=== PATIENT | male | born 1945 | race African-American/Black ===

== ENCOUNTER 2016-04-05 11:09 | Inpatient (IN) ==
[2016-04-05] MEDS ORDERED: SODIUM CHLORIDE 0.9% 1,000 ML IV STA (11:26)
[2016-04-05] MEDS ORDERED: ONDANSETRON 4 MG/2 ML VIAL IV PRN ×2 (11:26→12:27)
[2016-04-05] MEDS ORDERED: PANTOPRAZOLE 40 MG VIAL IV STA (11:26)
--- NOTE | 2016-04-05 11:37 | Emergency Department Note ---
Jose Angel Yang Gwan, am scribing for, and in the presence of, Nabil Sauceda MD 11:33 . Komal Yang James D, MD, personally performed the services described in this documentation, ascribed by Marilee Walter in my presence, and it is both accurate and complete [id number] . Arrival - Arrival Chief Complaint: GI Bleed/Rectal Stated Complaint: GI bleed ED Nursing Triage Note: Brought in by EMS c/o blood in stool and blood in urine- onset one week ago. Patient was sent from Dr. Garcia's office for further evaluation. Mode of Arrival: Stretcher Limitations: No Limitations Source: Patient, Old Records Reviewed, RN Notes Reviewed - History of Present Illness HPI Narrative: Pt is a 70 y/o male, with a hx of Prostate CA and HTN, who presents to the ED for further evaluation of dark color BM and blood in urine with an onset of one week. Patient was sent to ED from Dr. Ortega's office for further evaluation. He denies any abd pain. No other problems/complaints reported in ED. Onset (ago): week(s) Consistency: constant Severity: severe Allergies/Adverse Reactions: Allergies Allergy/AdvReac Type Severity Reaction Status Date / Time No Known Allergies Allergy Verified 04/05/16 11:24 Home Medications: Home Medications Medication Instructions Recorded Confirmed Type Amlodipine Besylate [Amlodipine 10 mg PO DAILY 04/05/16 04/05/16 History Besylate] Aspirin EC Tab 81 mg PO DAILY 04/05/16 04/05/16 History Gabapentin Cap/Tab [Neurontin 300 mg PO BID 04/05/16 04/05/16 History Cap/Tab] Hydrocodone/Acetaminophen 1 each PO BID 04/05/16 04/05/16 History [Hydrocodon-Acetaminoph 7.5-325] Omeprazole [Omeprazole] 40 mg PO DAILY 04/05/16 04/05/16 History Review of System - Review of System 12 point system: reviewed and no additional remarkable complaints except as stated - Review of System Gastrointestinal: Present: as per HPI, other (blood in BM and in urine) Medical,Surgical,& Family Hx - Medical History Cardio: History of: Hypertension Respiratory: History of: COPD Gastrointestinal: History of: GERD - Social History Smoking Status: Current every day smoker Frequency of Alcohol Use: None Type of Drug Use: None Exam Vital Signs: Vital Signs Temperature 98.3 F 04/05/16 11:09 Pulse Rate 67 04/05/16 12:03 Respiratory Rate 16 04/05/16 12:03 Blood Pressure 119/88 04/05/16 12:03 O2 Sat by Pulse Oximetry 98 04/05/16 12:03 GENERAL: This is a thin, pale appearing black male in no apparent distress. VITAL SIGNS: Reviewed HEENT: Head is atraumatic and normocephalic. Pupils are equal round react to light. Extraocular movements are intact. Conjunctiva are pale oropharynx is benign with moist mucous membranes. NECK: Neck is soft and supple without tenderness. There are no masses. There is no lymphadenopathy. LUNGS: Lungs are clear to auscultation. Chest rises symmetrically. There is no chest wall tenderness. CV: Heart is regular rate and rhythm without murmurs rubs or gallops. ABDOMEN: Abdomen is soft, nontender to palpation. There are no abdominal abnormal masses palpated. There is no organomegaly. Bowel sounds are present and active. Rectal: Black stool present in the vault, weakly heme positive. SKIN: Skin is warm and dry. No rash. EXTREMITIES: Patient has full range of motion without tenderness. There is no pedal edema. NEUROLOGIC: Awake alert and oriented 4. Cranial nerves II through XII are grossly intact. Motor is 5 over 5 in all extremities bilaterally. Deep tendon reflexes are 2+ and bilaterally equal. Course - Consultations Consultation #1: Discussed with hospitalist. Patient will be admitted to their service. Time: 12:01 Results - Diagnostic Findings Procedure: Abdominal x-ray: image reviewed by me (Nonspecific gas pattern, no free air, gas in the rectum.), Chest x-ray: image reviewed by me ( Hyperinflation bilaterally without evidence of infiltrates or pleural effusions. ) Disposition Clinical Impression: Anemia, Upper GI bleed, History of prostate cancer Case discussed with: patient Disposition: Still a Patient Condition: Stable
[2016-04-05] MEDS ORDERED: ONDANSETRON 4 MG/2 ML VIAL ONE (11:54)
--- NOTE | 2016-04-05 11:56 | XRay Report ---
Portable chest Date:[04/05/2016] Clinical history: Shortness of breath Comparison: 04/04/2011 Technique: Portable AP sitting chest Findings: The heart is small and compressed by the overexpanded lungs. Chronic scarring with calcified granulomata. Stable mediastinum with degenerative changes. Impression: Bullous emphysema with chronic scarring. Evidence of old healed granulomatous disease. PROCEDURE INTERPRETED AT [facility] DEPARTMENT OF RADIOLOGY Final Report Signed by: Dr. Barbara Alvarez
--- NOTE | 2016-04-05 12:00 | XRay Report ---
Exam: XR abdomen complete w decub Date: 04/05/2016 11:27 AM Comparison: None Indication: Generalized abdominal pain Technique: Supine and left lateral decubitus abdomen Findings: Nonobstructed bowel gas pattern. Increased fecal material in colon. No free air is identified. Diffuse arterial calcifications with degenerative changes. Impression: Nonspecific bowel gas pattern. Increased fecal material consistent with constipation. No free air. Diffuse arterial calcifications are noted. PROCEDURE INTERPRETED AT [facility] DEPARTMENT OF RADIOLOGY Final Report Signed by: Dr. Barbara Alvarez
[2016-04-05] MEDS ORDERED: PANTOPRAZOLE 40 MG VIAL IV ONE (12:14)
[2016-04-05 12:24] LABS: Basophils % 0.7 % (0.0-0.8); Eosinophils % 0.4 % (0.00-10.9); Hemoglobin 6.5 GM/DL (14.0-18.0); Immature Granulocytes % 0.7 %; Immature Granulocytes Absolute 0.03 #; Lymphocytes # 0.8 10*3/uL (1.4-4.0); Lymphocytes % 18.6 % (21.2-54.2); Mean Corpuscular HGB Conc 28.3 GM/DL (32-36); Mean Corpuscular Hemoglobin 22 PG (27-34); Mean Corpuscular Volume 75.9 FL (87-102); Mean Platelet Volume 9.2 FL (9.6-12.0); Monocytes # 0.4 10*3/uL (0.11-0.8); Monocytes % 7.8 % (1.7-12.7); Neutrophils # 3.2 10*3/uL (1.4-7.4); Neutrophils % 71.8 % (38.7-73.9); Platelet Count 491 10*3/uL (130-400); Red Blood Count 3.03 10*6/uL (3.8-5.5); Red Cell Distribution Width 18.1 % (9.3-17.3); White Blood Count 4.5 10*3/uL (4.5-13.71)
[2016-04-05] MEDS ORDERED: ZALEPLON 5 MG CAPSULE PO PRN (12:24)
[2016-04-05] MEDS ORDERED: PANTOPRAZOLE 40 MG TABLET PO SCH (12:30)
[2016-04-05 12:33] LABS: INR 1.1; Partial Thromboplastin Time 24.1 SECS (0-40)
[2016-04-05 12:52] LABS: Hypochromasia 1+; Microcytosis 1+; Target Cells Few
[2016-04-05 12:53] LABS: Ovalocytes Slight; Platelet Estimate Increased
[2016-04-05 13:02] LABS: Alanine Aminotransferase 11 U/L (16-61); Albumin 3.7 G/DL (3.4-5.0); Alkaline Phosphatase 59 U/L (45-117); Aspartate Amino Transferase 9 U/L (0-37); Bilirubin,Total < 0.39 MG/DL (0.2-1.0); Blood Urea Nitrogen 11 MG/DL (7-18); Calcium 8.9 MG/DL (8.5-10.1); Glucose 78 MG/DL (74-106); Osmolality,Calculated 285.7 MOS/KG (273-304); Potassium 4.8 MMOL/L (3.5-5.1); Sodium 145 MMOL/L (136-145); Total Protein 6.9 G/DL (6.4-8.3)
--- NOTE | 2016-04-05 13:16 | Hospitalist History & Physical ---
<Nila Alcocer - Last Filed: 04/05/16 13:11> Assessment and Plan - Time spent with patient Time spent with patient: Greater than 30 minutes (due to assessment, plan and documentation) (1) Upper GI bleed Status: Acute Assessment and plan: VTE prophylaxis NPO BMP, CBC, Mag in AM zofran PRN Protonix 40 mg IV BID Consult Dr. Peterson- GI. Current Visit: Yes (2) Acute blood loss anemia Status: Acute Current Visit: Yes (3) History of prostate cancer Status: Acute Current Visit: Yes History of Present Illness Chief complaint: sent from [facility] History of present illness: Mr. Caldwell is a 70 year old male who was seen today at Dr. Garcia's office in [place], [place] for black stools. He was sent to our facility for further evaluation. He states that he has been having black stools for about 1 week. Denies any BRBPR. He is on a baby aspirin every day because "it's just good for you". He denies excessive NSAID use, or history of ulcers in the past. He does have a hx of prostate cancer for which he is followed by Dr. Quintero. His H/H from [facility] was 6/. On repeat at [facility], H/H was 6/. He does state that he has been vomiting as well, but denies any blood in his emesis. Denies diarrhea. No known problems with his heart, kidneys or lungs. He is not diabetic, but is hypertensive and is on 1 BP pill a day, the name which he can not recall. He states his last Colonoscopy was about 10 years ago and was reportedly normal. He cannot remember who performed his scope. BP is stable at 119/88 last check. Pulse 74. He lives at home with his Son, Karina Carias, and his . He is accompanied today by his daughter, Suzanne Hahn. He functions independently typically. Further plan and addendum to follow by Dr. Madalyn Frank. Home Medications Medication Instructions Recorded Confirmed Type Amlodipine Besylate [Amlodipine 10 mg PO DAILY 04/05/16 04/05/16 History Besylate] Aspirin EC Tab 81 mg PO DAILY 04/05/16 04/05/16 History Gabapentin Cap/Tab [Neurontin 300 mg PO BID 04/05/16 04/05/16 History Cap/Tab] Hydrocodone/Acetaminophen 1 each PO BID 04/05/16 04/05/16 History [Hydrocodon-Acetaminoph 7.5-325] Omeprazole [Omeprazole] 40 mg PO DAILY 04/05/16 04/05/16 History Allergies Allergy/AdvReac Type Severity Reaction Status Date / Time No Known Allergies Allergy Verified 04/05/16 11:24 Medical,Surgical,& Family Hx - Medical History Cardio: History of: Hypertension Respiratory: History of: COPD Gastrointestinal: History of: GERD - Social History Smoking Status: Current every day smoker Frequency of Alcohol Use: None Type of Drug Use: None Marital Status: Unknown Lives With:: Children (son, Karina Jr and ) Functional capacity: uses cane/walker (uses crutches.) - Constitutional Constitutional: Absent: chills, fatigue, fever(s) - EENT Eyes: Absent: blurry vision, diplopia Ears: Absent: decreased hearing, tinnitus Nose, mouth and throat: Absent: dysphagia, headache(s) - Cardiovascular Cardiovascular: Absent: chest pain at rest, dyspnea on exertion, lightheadedness - Respiratory Respiratory: Absent: cough, dyspnea, hemoptysis - Gastrointestinal Gastrointestinal: Present: melena, nausea, vomiting. Absent: abdominal pain, diarrhea - Genitourinary Genitourinary: Absent: difficulty urinating, dysuria, flank pain - Musculoskeletal Musculoskeletal: Absent: arthralgias, back pain - Neurological Neurological: Absent: confusion, dizziness - Psychiatric Psychiatric: Absent: anxiety, confusion, depression - Endocrine Endocrine: Absent: cold intolerance, heat intolerance - Hematologic/Lymphatic Hematologic/Lymphatic: Absent: easy bleeding, easy bruising Exam - Constitutional General appearance: no acute distress, over weight - Head Head exam: Present: normal inspection, normocephalic - Eye Eye exam: Present: EOMI. Absent: scleral icterus Pupils: Present: ESE, normal accommodation - ENT ENT exam: Present: normal exam, normal oropharynx - Neck Neck exam: Present: normal inspection. Absent: lymphadenopathy - Respiratory Respiratory exam: Present: clear to auscultation bilaterally. Absent: accessory muscle use - Cardiovascular Cardiovascular exam: Present: regular rate and rhythm. Absent: carotid bruit - GI/Abdominal GI/Abdominal exam: Present: normal bowel sounds, soft. Absent: distended, firm , tenderness - Extremities Exam Extremities exam: Present: normal inspection. Absent: edema - Back Exam Back exam: Present: normal inspection. Absent: muscle spasm - Neurological Exam Neurological exam: Present: alert, oriented X3 - Psychiatric Psychiatric exam: Present: normal affect, normal mood - Skin Skin exam: Present: normal color, warm, dry, intact Results - Labs CBC & BMP: 04/05/16 12:11 04/05/16 12:16 Lab Results: I have reviewed the past 24 hour labs - Diagnostic Findings Procedure: Abdominal x-ray: report reviewed by me (nonspecific bowel gas pattern. increased fecal material c/w constipation. no free air. diffuse arterial calcifications are noted. ), Chest x-ray: report reviewed by me ( bullous emphysema with chronic scarring. evidence of old healed granulomatous disease. ) Quality Measures - VTE Contraindication to Pharmacological VTE Prophylaxis: Active Bleeding <Madalyn Frank - Last Filed: 04/05/16 14:51> Assessment and Plan (1) Upper GI bleed Status: Acute Current Visit: Yes (2) Acute blood loss anemia Status: Acute Assessment and plan: Transfuse 2 units packed red blood cells. Current Visit: Yes History of Present Illness History of present illness: Mr. Caldwell is a 70 year old male that was admitted to the emergency department from his primary care physician's office with evidence of anemia and hemoglobin of 6.5. The patient has been having black tarry stools. He has evidence of an upper gastrointestinal bleed and is being admitted for acute blood loss anemia with a consultation for gastroenterology. The patient is pleasant and cooperative. I examined the patient in the emergency department in room 4 with his daughter at the bedside. All their questions were answered appropriately. The case was discussed with the gastroenterology nurse practitioner. The patient is being transfused 2 units packed red blood cells. His INR is normal. His renal function is stable. Further recommendations will depend on his response to blood transfusion and the findings of his endoscopy. The content of this history and physical has been reviewed and discussed with nurse practitioner. I agree with the documentation and plan below. Exam - Constitutional Vitals: Period Temp Pulse Resp BP Sys/Cueto Pulse Ox Last 24 Hr 76-79 18-20 138-138/57-57 99-100 Results - Labs CBC & BMP: 04/05/16 12:11 04/05/16 12:16
[2016-04-05] MEDS ORDERED: PROPOFOL 200 MG/20 ML VIAL IV ONE (13:33)
[2016-04-05] MEDS ORDERED: LIDOCAINE 2% 5 ML VIAL ONE (13:33)
--- NOTE | 2016-04-05 13:33 | Gastrointestinal Consult Note ---
Assessment and Plan (1) Upper GI bleed Status: Acute Assessment and plan: 04/05-Onset of dark tarry stools x 1 week ago, now with lower abd cramping, coffee ground emesis on yesterday and hgb 6.5 with prior hx of anemia in past. Schedule for tentative EGD tomorrow to further evaluate. Plan and addendum to follow by Dr Peterson. Current Visit: Yes History of Present Illness Chief complaint: Upper GI bleed History of present illness: Mr. Caldwell is a 70 year old male who presented to the hospital with onset of dark tarry stools and coffee ground emesis. Pt is a fairly good historian and able to contribute to his history. Daughter is present and at bedside as well. Pt states that he was in his usual state of health until a week ago when he began to notice his stools had changed and became dark and tarry. He states this continued daily until yesterday when he began not feeling very well and had onset of nausea with vomiting of dark black emesis, he states resembled coffee grounds. He states he vomited a couple of times however has not vomited again since last night. He states he also has had some lower abdominal discomfort the last couple of days however denies any upper abdominal, epigastric pain. He has a history of GERD and states this is controlled with his Prilosec. He denies any dysphagia or weight loss recently. Denies any NSAID use. States that he takes Tylenol arthritis for pain and an ASA daily. He denies any history of PUD in the past. Denies alcohol or tobacco use. He has a history of prostate cancer in the past and is followed by Dr Quintero for this with routine PSA checks. His last endoscopy was in [address] Bobo in which he had this done for anemia with no findings on EGD and only findings on c -scope at that time was a stricture around the sigmoid colon however noted it was a poor prep at that time. Hgb on admission noted to be 6.5. No active, overt bleeding at present. BUN/Cr ratio 12. Home Medications Medication Instructions Recorded Confirmed Type Amlodipine Besylate [Amlodipine 10 mg PO DAILY 04/05/16 04/05/16 History Besylate] Aspirin EC Tab 81 mg PO DAILY 04/05/16 04/05/16 History Gabapentin Cap/Tab [Neurontin 300 mg PO BID 04/05/16 04/05/16 History Cap/Tab] Hydrocodone/Acetaminophen 1 each PO BID 04/05/16 04/05/16 History [Hydrocodon-Acetaminoph 7.5-325] Omeprazole [Omeprazole] 40 mg PO DAILY 04/05/16 04/05/16 History Allergies Allergy/AdvReac Type Severity Reaction Status Date / Time No Known Allergies Allergy Verified 04/05/16 11:24 Medical,Surgical,& Family Hx - Medical History Cardio: History of: Hypertension Respiratory: History of: COPD Gastrointestinal: History of: GERD - Social History Smoking Status: Current every day smoker Frequency of Alcohol Use: None Type of Drug Use: None 12 point system: reviewed and no additional remarkable complaints except as stated - Constitutional Constitutional: Present: as per HPI - EENT Eyes: Present: as per HPI Ears: Present: as per HPI Nose, mouth and throat: Present: as per HPI - Cardiovascular Cardiovascular: Present: as per HPI - Respiratory Respiratory: Present: as per HPI - Gastrointestinal Gastrointestinal: Present: as per HPI, abdominal pain, coffee ground emesis, cramping, melena - Genitourinary Genitourinary: Present: as per HPI - Musculoskeletal Musculoskeletal: Present: as per HPI - Neurological Neurological: Present: as per HPI - Psychiatric Psychiatric: Present: as per HPI - Endocrine Endocrine: Present: as per HPI - Hematologic/Lymphatic Hematologic/Lymphatic: Present: as per HPI Exam - Constitutional General appearance: normal weight, no acute distress - Head Head exam: Present: normal inspection, normocephalic - Eye Eye exam: Present: other (lids and conjunctiva unremarakble). Absent: scleral icterus - ENT ENT exam: Present: normal exam, normal oropharynx - Neck Neck exam: Present: normal inspection - Respiratory Respiratory exam: Present: clear to auscultation bilaterally. Absent: rales, rhonchi, wheezes - Cardiovascular Cardiovascular exam: Present: regular rate and rhythm. Absent: diastolic murmur , JVD, systolic murmur - GI/Abdominal GI/Abdominal exam: Present: normal bowel sounds, soft. Absent: ascites, distended, mass, organomegaly, tenderness - Extremities Exam Extremities exam: Present: normal inspection, full ROM - Back Exam Back exam: Present: normal inspection - Neurological Exam Neurological exam: Present: alert, oriented X3 - Psychiatric Psychiatric exam: Present: normal affect, normal mood - Skin Skin exam: Present: normal color, warm, dry Results - Labs CBC & BMP: 04/05/16 12:11 04/05/16 12:16 Lab Results: I have reviewed the past 24 hour labs Quality Measures - VTE Contraindication to Pharmacological VTE Prophylaxis: Active Bleeding
[2016-04-05] MEDS ORDERED: SODIUM CHLORIDE 0.9% 250 ML IV PRN (13:36)
[2016-04-05] MEDS: GABAPENTIN 300 MG CAPSULE PO SCH (21:44)
[2016-04-05] MEDS: PANTOPRAZOLE 40 MG VIAL IV SCH (22:22)
[2016-04-06] MEDS: SODIUM CHLORIDE 0.9% 1,000 ML IV SCH ×4 (02:15→17:53)
[2016-04-06 06:41] LABS: Basophils # 0.1 10*3/uL (0.0-0.2); Basophils % 1.4 % (0.0-0.8); Eosinophils # 0.1 10*3/uL (0.0-0.87); Hematocrit 33.7 VOL% (42.0-52.0); Immature Granulocytes % 0.5 %; Immature Granulocytes Absolute 0.03 #; Mean Corpuscular HGB Conc 29.7 GM/DL (32-36); Mean Corpuscular Hemoglobin 24 PG (27-34); Mean Platelet Volume 9.3 FL (9.6-12.0); Monocytes # 0.5 10*3/uL (0.11-0.8); Monocytes % 7.5 % (1.7-12.7); Neutrophils # 4.8 10*3/uL (1.4-7.4); Neutrophils % 73.6 % (38.7-73.9); Platelet Count 550 10*3/uL (130-400); Red Blood Count 4.21 10*6/uL (3.8-5.5); Red Cell Distribution Width 17.4 % (9.3-17.3); White Blood Count 6.5 10*3/uL (4.5-13.71)
[2016-04-06 07:15] LABS: Calcium 9.3 MG/DL (8.5-10.1); Magnesium 2.1 MG/DL (1.8-2.4); Osmolality,Calculated 276.3 MOS/KG (273-304); Potassium 4.6 MMOL/L (3.5-5.1)
[2016-04-06] MEDS: PANTOPRAZOLE 40 MG VIAL IV SCH ×2 (09:48→21:10)
--- NOTE | 2016-04-06 11:10 | Hospitalist Progress Note ---
Assessment and Plan (1) Upper GI bleed Status: Acute Assessment and plan: EGD today Current Visit: Yes (2) Acute blood loss anemia Status: Acute Assessment and plan: Transfuse 2 units packed red blood cells. Current Visit: Yes Hospitalist: Subjective Interval history: Patient seen and examined. No acute events overnight. Hemoglobin has come up with transfusion of 2 units of packed red blood cells. He has been nothing by mouth since midnight. Plan for EGD today. Exam - Constitutional Vitals: Period Temp Pulse Resp BP Sys/Cueto Pulse Ox Last 24 Hr 97.7 F-98.9 F 60-80 18-20 110-139/49-91 92-100 General appearance: no acute distress - Head Head exam: Present: normal inspection, normocephalic - Eye Eye exam: Present: EOMI - Respiratory Respiratory exam: Present: clear to auscultation bilaterally - Cardiovascular Cardiovascular exam: Present: regular rate and rhythm - GI/Abdominal GI/Abdominal exam: Present: normal bowel sounds, soft - Extremities Exam Extremities exam: Absent: edema - Neurological Exam Neurological exam: Present: alert, oriented X3 - Psychiatric Psychiatric exam: Present: normal affect, normal mood - Skin Skin exam: Present: normal color, warm Results - Labs CBC & BMP: 04/06/16 06:21 04/06/16 06:21 Lab Results: I have reviewed the past 24 hour labs Quality Measures - VTE Contraindication to Pharmacological VTE Prophylaxis: Active Bleeding
--- NOTE | 2016-04-06 13:30 | History and Physical Update ---
History and Physical Update - Physical Exam Mental Status: alert and oriented Heart: regular rate and rhythm Lung: clear to auscultation Abdomen: within normal limits Vitals: within normal limits History and Physical Changes: 70-year-old male was admitted with upper GI bleeding.
--- NOTE | 2016-04-06 13:47 | Operative Note ---
Date of procedure: 04/06/16 Pre-op diagnosis: Upper GI bleeding Procedure: Procedure: Esophagogastroduodenoscopy with argon plasma coagulation of duodenal vascular malformations Brief clinical abstract: Patient is a 70-year-old male admitted with coffee- ground emesis and melena. He has required transfusion of 2 units packed red blood cells. He denies recent abdominal pain or weight loss. Indication for procedure: Upper GI bleeding Endoscopic findings:[After informed consent was obtained, the patient was placed in the left lateral decubitus position. The gastroscope was inserted in the upper esophagus under direct vision with no resistance encountered. Esophageal mucosa appeared normal with squamocolumnar junction sharply demarcated above a moderate-sized hiatal hernia. The endoscope was advanced in the stomach which was carefully examined including retroflexed view of the cardia and fundus. No blood was in the stomach. No mucosal abnormalities were noted. The pyloric channel was normal. In the duodenal bulb there were at least 4 prominent vascular malformations which were villegas red in color but not bleeding. Photos were taken of these. I coagulated them with argon plasma coagulation device on a setting of 20 W and appeared to have good results afterwards. Second and third portion of the duodenum were normal. The endoscope was withdrawn and patient appeared to tolerate the procedure well. 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 Anesthesia: MAC Surgeon / Physician: Sukh Peterson Estimated blood loss: minimal Specimens: none sent Condition: stable Disposition: post procedure unit Results - Labs CBC & BMP: 04/06/16 06:21 04/06/16 06:21 Discharge Plan - Discharge Medications No Action Gabapentin Cap/Tab [Neurontin Cap/Tab] 300 mg PO BID Omeprazole [Omeprazole] 40 mg PO DAILY Aspirin EC Tab 81 mg PO DAILY Hydrocodone/Acetaminophen [Hydrocodon-Acetaminoph 7.5-325] 1 each PO BID Amlodipine Besylate [Amlodipine Besylate] 10 mg PO DAILY - Follow Up or Referral - Forms/Instructions
--- NOTE | 2016-04-06 13:58 | Anesthesia ---
Anesthesia Post OP - Post Ansesthetic Evaluation Patient seen in post op: Yes Resp: within normal limits CV: within normal limits Mental: within normal limits Temp: within normal limits [id number]: within normal limits Nausea and Vomiting: within normal limits Pain: within normal limits
[2016-04-06] MEDS: GABAPENTIN 300 MG CAPSULE PO SCH ×2 (15:12→21:09)
[2016-04-07] MEDS: SODIUM CHLORIDE 0.9% 1,000 ML IV SCH ×3 (07:25→13:07)
[2016-04-07] MEDS: PANTOPRAZOLE 40 MG VIAL IV SCH (08:04)
[2016-04-07] MEDS: GABAPENTIN 300 MG CAPSULE PO SCH (08:04)
--- NOTE | 2016-04-07 09:24 | Discharge Summary ---
Hospital Course - Hospital Course Hospital Course: Mr. 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 The patient underwent EGD by gastroenterology Dr. Peterson. He tolerated the procedure well and he's had no further bleeding. He received 2 units of packed red blood cells during this hospitalization. He's reached maximal benefit and is ready for discharge home. He had no complications during the course of this hospitalization. Total discharge time for this patient including [id number] time clinical documentation medication reconciliation and discharge planning were 28 minutes. - Time spent with patient Time with patient DS: Less than 30 minutes Diagnosis - Discharge Diagnosis (1) Upper GI bleed Status: Resolved (2) Acute blood loss anemia Status: Acute Discharge Plan - Discharge Data Disposition: Disch To Home/Self Care Condition at Discharge: Stable Discharge Diet: advance to your usual diet Activity: resume usual activities as tolerated Hygiene: no restrictions Contact your physician if you experience:: fever over 101, Nausea/Vomiting, Bleeding - Discharge Medications Continue Gabapentin Cap/Tab [Neurontin Cap/Tab] 300 mg PO BID Aspirin EC Tab 81 mg PO DAILY Hydrocodone/Acetaminophen [Hydrocodon-Acetaminoph 7.5-325] 1 each PO BID Amlodipine Besylate 10 mg PO DAILY Omeprazole 40 mg PO DAILY #30 capsule - Follow Up or Referral Follow Up: Sukh Peterson MD [Physician] - - Forms/Instructions Exam - Constitutional Vitals: Period Temp Pulse Resp BP Sys/Cueto Pulse Ox Last 24 Hr 97.9 F-98.3 F 56-66 12-18 105-135/49-75 92-99 General appearance: no acute distress - Head Head exam: Present: normal inspection, normocephalic, atraumatic - Respiratory Respiratory exam: Present: clear to auscultation bilaterally - Cardiovascular Cardiovascular exam: Present: regular rate and rhythm - GI/Abdominal GI/Abdominal exam: Present: normal bowel sounds, soft. Absent: tenderness, rebound - Extremities Exam Extremities exam: Present: normal inspection. Absent: edema - Neurological Exam Neurological exam: Present: alert, oriented X3 - Psychiatric Psychiatric exam: Present: normal affect, normal mood - Skin Skin exam: Present: normal color, warm, dry Discharge Results Procedures and tests throughout hospitalization: Pending Orders 04/06/16 13:37 Occult Blood, Stool Routine DS: Provider Date of admission: 04/05/16 12:24 Primary care physician: . No PCP Attending physician on admission: Madalyn Frank MD Consults: 04/05/16 13:52 Consult to Pharmacy [CONS] Routine Reason for Pharmacy Consult: Adjust Meds Renal Funct Discharging clinician: Madalyn Frank MD Expected date of discharge: 04/07/16
[2016-04-07 12:15] VITALS: BP 120/56
--- NOTE | 2016-04-11 13:51 | Physician Query Form ---
CLICK EDIT DOCUMENT TO SELECT QUERY ANSWER --> OK --> SIGN Puja Gutiérrez RN Clinical Chief Controller Center W) [phone] (f) [phone] [email or web address]: Make your selection(s) from the choices in EACH section by typing an "x" and enter comments in the comment section. Please use your independent medical judgment in providing your response. This request does not imply that any particular answer is desired or expected. CLINICAL INDICATORS: (Providers should not edit this section) Height: 5ft 9in Weight: 92lbs Business Project Analyst BMI: 13.6 Nutritional supplements: Ensure enlive with all meals Maintenance Craftsman notes: Underweight Based on the above, which following choice most accurately represents the patient's nutritional status? (x ) Malnutrition ( ) mild ( ) moderate (x) severe ( ) Protein calorie malnutrition ( ) mild ( ) moderate ( ) severe ( ) Emaciation due to malnutrition ( ) Nutritional marasmus ( ) Cachexia ( ) Underweight ( ) No nutritional deficiency ( ) Other, please specify: ( ) Clinically unable to determine Mild Malnutrition (BMI < 18.5, % Normal Body Weight 85-95%) Moderate Malnutrition (BMI < 17, % Normal Body Weight 75-85%) Severe Malnutrition (BMI < 16, % Normal Body Weight < 75%) Source: Kim COMMENTS: Use of terms such as suspected, likely, or probable (associated with a specific diagnosis that is being evaluated, monitored, or treated as if it exists) are acceptable and can be restated in the discharge summary if not ruled out. MTDD
== END 2016-04-07 13:32 | disposition home or self-care (01) | DRG 377 ==
LOC: EDUNIT# → EDBD → N.ED 11:09 → N.EDINP 12:24 → N.2E 13:48
PROVIDERS: ADMIT Family Medicine; ATTEND Family Medicine

== ENCOUNTER 2018-01-28 06:43 | Inpatient (IN) ==
[2018-01-24 10:33] LABS: Basophils % 0.7 % (0.0-0.8); Eosinophils # 0.1 10*3/uL (0.0-0.87); Eosinophils % 1.1 % (0.00-10.9); Hematocrit 35.8 VOL% (42.0-52.0); Hemoglobin 11.4 GM/DL (14.0-18.0); Immature Granulocytes % 0.2 %; Immature Granulocytes Absolute 0.01 #; Lymphocytes # 1.3 10*3/uL (1.4-4.0); Lymphocytes % 22.3 % (21.2-54.2); Mean Corpuscular HGB Conc 31.8 GM/DL (32-36); Mean Corpuscular Hemoglobin 32 PG (27-34); Mean Corpuscular Volume 101.1 FL (87-102); Monocytes # 0.4 10*3/uL (0.11-0.8); Monocytes % 6.4 % (1.7-12.7); Neutrophils # 3.9 10*3/uL (1.4-7.4); Neutrophils % 69.3 % (38.7-73.9); Platelet Count 403 T/CUMM (130-400); Red Blood Count 3.54 MC/CUMM (3.8-5.5); Red Cell Distribution Width 15.2 % (9.3-17.3); White Blood Count 5.6 T/CUMM (4-12)
[2018-01-24 10:54] LABS: Alanine Aminotransferase 17 U/L (16-61); Albumin 3.8 G/DL (3.4-5.0); Alkaline Phosphatase 106 U/L (45-117); Aspartate Amino Transferase 14 U/L (0-37); Bilirubin,Total < 0.39 MG/DL (0.2-1.0); Blood Urea Nitrogen 12 MG/DL (7-18); Calcium 9.3 MG/DL (8.5-10.1); Glucose 90 MG/DL (74-106); Osmolality,Calculated 280.3 MOS/KG (273-304); Potassium 4.5 MMOL/L (3.5-5.1); Sodium 141 MMOL/L (136-145); Total Protein 7.6 G/DL (6.4-8.3)
[~2018-01-28 06:43] MED LIST: ceFAZolin 1,000 MG VIAL ONE; ceFAZolin 1,000 MG in SYRINGE 1 EACH IV ONE
[2018-01-28] MEDS ORDERED: HEPARIN 10,000 UNIT/10 ML VIAL ONE (06:57)
[2018-01-28] MEDS ORDERED: HEPARIN/NACL 0.9% 2 UNITS/ML 500 ML IV ONE (06:57)
[2018-01-28] MEDS ORDERED: PROTAMINE SULFATE 50 MG/5 ML VIAL IV ONE (06:57)
[2018-01-28] MEDS ORDERED: NITROGLYCERIN DRIP 50 MG/250 ML BOTTLE IV ONE (06:57)
[2018-01-28] MEDS ORDERED: PHENYLEPHRINE DRIP 20 MG/250 ML PREMIX IV ONE (06:57)
[2018-01-28] MEDS ORDERED: METOPROLOL TARTRATE 25 MG TABLET PO STA (07:27)
[2018-01-28] MEDS ORDERED: PANTOPRAZOLE 40 MG TABLET PO STA (07:27)
[2018-01-28] MEDS ORDERED: HEPARIN 5,000 UNIT/1 ML VIAL ONE (07:28)
[2018-01-28] MEDS ORDERED: ceFAZolin 1,000 MG VIAL ONE (07:32)
[2018-01-28] MEDS: LACTATED RINGERS 1,000 ML IV SCH ×4 (07:36→22:05)
[2018-01-28] MEDS ORDERED: ALBUMIN 5% 12.5 GM/250 ML VIAL IV ONE (09:34)
[2018-01-28] MEDS ORDERED: TISSUE ADHESIVE 1 EACH APPLICATOR TOP ONE (10:35)
[2018-01-28] MEDS ORDERED: diphenhydrAMINE CAP 25 MG CAPSULE PO PRN (11:14)
[2018-01-28] MEDS ORDERED: diphenhydrAMINE 50 MG/1 ML VIAL IV PRN (11:14)
[2018-01-28 11:18] LABS: Amorphous Crystals,Urine Moderate /HPF (Few); Apearance,Urine CLOUDY (Clear); Bilirubin,Urine Negative (Negative); Blood, Urine Negative (Negative); Glucose,Urine (UA) Negative (Negative); Ketones,Urine Negative (Negative); Mucus,Urine Occasional /LPF (Occasional); Nitrite,Urine Negative (Negative); Protein,Urine Negative; Squamous Epithelial Cell,Urine Occasional /HPF (0-10); Urine Color Yellow (Yellow); Urine Urobilinogen < 2.0 EU/DL (0.2-1.0)
[2018-01-28] MEDS ORDERED: PROPOFOL 200 MG/20 ML VIAL IV ONE (11:24)
[2018-01-28] MEDS ORDERED: EPINEPHrine 1 MG/ML VIAL ONE (11:25)
[2018-01-28] MEDS ORDERED: fentaNYL 100 MCG/2 ML VIAL ONE (11:25)
[2018-01-28] MEDS ORDERED: SEVOFLURANE 1 UNIT/15 MINUTE INH ONE (11:25)
[2018-01-28] MEDS ORDERED: MIDAZOLAM 2 MG/2 ML VIAL ONE (11:25)
[2018-01-28] MEDS ORDERED: GLYCOPYRROLATE 0.4 MG/2 ML VIAL ONE (11:25)
[2018-01-28] MEDS ORDERED: CALCIUM CHLORIDE 1,000 MG/10 ML VIAL IV ONE (11:26)
[2018-01-28] MEDS ORDERED: NEOSTIGMINE 10 MG/10 ML VIAL ONE (11:26)
[2018-01-28] MEDS ORDERED: ROCURONIUM 100 MG/10 ML VIAL IV ONE (11:26)
[2018-01-28] MEDS ORDERED: LACTATED RINGERS 2,000 ML IV ONE (11:26)
[2018-01-28] MEDS ORDERED: fentaNYL 2 MCG/ROPIV 0.2% EPID 100 ML EPIDURAL SCH (11:30)
[2018-01-28 11:36] LABS: Hematocrit 28.5 VOL% (42.0-52.0); Hemoglobin 8.7 GM/DL (14.0-18.0)
[2018-01-28 12:00] LABS: Calcium 9.9 MG/DL (8.5-10.1); Osmolality,Calculated 284.8 MOS/KG (273-304); Potassium 4.1 MMOL/L (3.5-5.1)
[2018-01-28] MEDS ORDERED: PHENYLEPHRINE DRIP 40 MG/250 ML PREMIX IV ONE (12:30)
[2018-01-28] MEDS: METOPROLOL TARTRATE 5 MG/5 ML VIAL IV SCH ×3 (13:00→23:20)
[2018-01-28] MEDS: fentaNYL 2 MCG/ROPIV 0.2% EPID 100 ML EPIDURAL SCH ×2 (13:01→17:12)
[2018-01-28] MEDS: ALUMINUM/MAGNES/SIMETH MAX STR 30 ML UDCUP NG SCH ×4 (13:09→23:19)
[2018-01-28] MEDS: ONDANSETRON 4 MG/2 ML VIAL IV PRN (13:09)
[2018-01-28] MEDS ORDERED: KETOROLAC 30 MG/1 ML VIAL IM PRN (17:14)
[2018-01-29] MEDS: KETOROLAC 10 MG TABLET PO PRN ×2 (00:49→17:11)
[2018-01-29] MEDS: ALUMINUM/MAGNES/SIMETH MAX STR 30 ML UDCUP NG SCH ×3 (02:34→10:33)
[2018-01-29] MEDS ORDERED: FONDAPARINUX 2.5 MG/0.5 ML SYRINGE SUBCUT SCH (04:57)
[2018-01-29 05:16] LABS: Basophils % 0.3 % (0.0-0.8); Eosinophils % 0.1 % (0.00-10.9); Hematocrit 26.4 VOL% (42.0-52.0); Hemoglobin 8.3 GM/DL (14.0-18.0); Immature Granulocytes % 0.8 %; Immature Granulocytes Absolute 0.09 #; Lymphocytes # 0.6 10*3/uL (1.4-4.0); Lymphocytes % 5.4 % (21.2-54.2); Mean Corpuscular HGB Conc 31.4 GM/DL (32-36); Mean Corpuscular Hemoglobin 33 PG (27-34); Mean Corpuscular Volume 103.9 FL (87-102); Mean Platelet Volume 10.4 FL (9.6-12.0); Monocytes # 0.9 10*3/uL (0.11-0.8); Monocytes % 7.8 % (1.7-12.7); Neutrophils # 9.8 10*3/uL (1.4-7.4); Neutrophils % 85.6 % (38.7-73.9); Platelet Count 205 T/CUMM (130-400); Red Blood Count 2.54 MC/CUMM (3.8-5.5); Red Cell Distribution Width 15.2 % (9.3-17.3); White Blood Count 11.4 T/CUMM (4-12)
[2018-01-29 05:22] LABS: Calcium 8.8 MG/DL (8.5-10.1); Osmolality,Calculated 274.5 MOS/KG (273-304); Potassium 4.4 MMOL/L (3.5-5.1)
[2018-01-29] MEDS: LACTATED RINGERS 1,000 ML IV SCH ×3 (06:01→10:16)
[2018-01-29] MEDS: METOPROLOL TARTRATE 5 MG/5 ML VIAL IV SCH ×3 (06:02→19:42)
[2018-01-29 07:22] LABS: Platelet Estimate Normal
[2018-01-29] MEDS: PANTOPRAZOLE 40 MG VIAL IV SCH (08:01)
[2018-01-29] MEDS: fentaNYL 2 MCG/ROPIV 0.2% EPID 100 ML EPIDURAL SCH ×2 (08:02→10:12)
[2018-01-29] MEDS: METOCLOPRAMIDE 10 MG/2 ML VIAL IV SCH ×2 (15:52→19:38)
[2018-01-29] MEDS: ONDANSETRON 4 MG/2 ML VIAL IV PRN (17:09)
[2018-01-30] MEDS: METOCLOPRAMIDE 10 MG/2 ML VIAL IV SCH ×2 (00:42→05:33)
[2018-01-30] MEDS: METOPROLOL TARTRATE 5 MG/5 ML VIAL IV SCH ×4 (00:42→18:15)
[2018-01-30] MEDS: LACTATED RINGERS 1,000 ML IV SCH ×2 (01:18→07:30)
[2018-01-30] MEDS: fentaNYL 2 MCG/ROPIV 0.2% EPID 100 ML EPIDURAL SCH (01:55)
[2018-01-30] MEDS: KETOROLAC 10 MG TABLET PO PRN ×2 (02:57→09:08)
[2018-01-30 05:13] LABS: Basophils % 0.2 % (0.0-0.8); Eosinophils # 0.1 10*3/uL (0.0-0.87); Eosinophils % 0.5 % (0.00-10.9); Hematocrit 23.5 VOL% (42.0-52.0); Hemoglobin 7.4 GM/DL (14.0-18.0); Immature Granulocytes % 0.4 %; Immature Granulocytes Absolute 0.04 #; Lymphocytes # 0.6 10*3/uL (1.4-4.0); Lymphocytes % 6.1 % (21.2-54.2); Mean Corpuscular HGB Conc 31.5 GM/DL (32-36); Mean Corpuscular Hemoglobin 32 PG (27-34); Mean Corpuscular Volume 101.3 FL (87-102); Mean Platelet Volume 9.7 FL (9.6-12.0); Monocytes # 0.8 10*3/uL (0.11-0.8); Monocytes % 8.5 % (1.7-12.7); Neutrophils # 7.8 10*3/uL (1.4-7.4); Neutrophils % 84.3 % (38.7-73.9); Platelet Count 222 T/CUMM (130-400); Red Blood Count 2.32 MC/CUMM (3.8-5.5); Red Cell Distribution Width 14.7 % (9.3-17.3); White Blood Count 9.2 T/CUMM (4-12)
[2018-01-30 05:37] LABS: Calcium 8.7 MG/DL (8.5-10.1); Osmolality,Calculated 270.8 MOS/KG (273-304)
[2018-01-30] MEDS ORDERED: INFLUENZA VIRUS VACCINE 0.5 ML SYRINGE IM ONE (09:00)
[2018-01-30] MEDS: PANTOPRAZOLE 40 MG VIAL IV SCH (09:11)
[2018-01-30] MEDS ORDERED: HYDROmorphone 2 MG/1 ML VIAL IV PRN (13:19)
[2018-01-30] MEDS ORDERED: KETOROLAC 10 MG TABLET PO PRN (13:20)
[2018-01-31] MEDS: METOPROLOL TARTRATE 5 MG/5 ML VIAL IV SCH ×2 (00:31→06:19)
[2018-01-31] MEDS: oxyCODONE/ACETAMINOPHEN 5-325 MG TABLET PO PRN ×3 (00:31→22:10)
[2018-01-31 06:11] LABS: Basophils % 0.2 % (0.0-0.8); Eosinophils # 0.1 10*3/uL (0.0-0.87); Eosinophils % 0.9 % (0.00-10.9); Hemoglobin 8.6 GM/DL (14.0-18.0); Immature Granulocytes % 0.5 %; Immature Granulocytes Absolute 0.04 #; Lymphocytes # 0.5 10*3/uL (1.4-4.0); Lymphocytes % 6.3 % (21.2-54.2); Mean Corpuscular HGB Conc 31.9 GM/DL (32-36); Mean Corpuscular Hemoglobin 31 PG (27-34); Mean Corpuscular Volume 98.2 FL (87-102); Mean Platelet Volume 9.9 FL (9.6-12.0); Monocytes # 0.7 10*3/uL (0.11-0.8); Monocytes % 8.4 % (1.7-12.7); Neutrophils # 6.8 10*3/uL (1.4-7.4); Neutrophils % 83.7 % (38.7-73.9); Platelet Count 272 T/CUMM (130-400); Red Blood Count 2.75 MC/CUMM (3.8-5.5); Red Cell Distribution Width 14.1 % (9.3-17.3); White Blood Count 8.1 T/CUMM (4-12)
[2018-01-31] MEDS: PANTOPRAZOLE 40 MG VIAL IV SCH (08:36)
[2018-01-31] MEDS: METOPROLOL TARTRATE 25 MG TABLET PO SCH ×2 (09:56→20:27)
[2018-01-31] MEDS: ASPIRIN EC 81 MG TABLET PO SCH (09:56)
[2018-01-31] MEDS: GABAPENTIN 300 MG CAPSULE PO SCH (20:27)
[2018-01-31] MEDS ORDERED: DICLOFENAC POTASSIUM 50 MG TABLET PO SCH (21:00)
[2018-02-01] MEDS ORDERED: amLODIPine 10 MG TABLET PO SCH (09:00)
[2018-02-01] MEDS ORDERED: CHOLECALCIFEROL 1,000 UNIT TABLET PO SCH (09:00)
[2018-02-01] MEDS: GABAPENTIN 300 MG CAPSULE PO SCH (09:47)
[2018-02-01] MEDS: ASPIRIN EC 81 MG TABLET PO SCH (09:49)
[2018-02-01] MEDS: METOPROLOL TARTRATE 25 MG TABLET PO SCH (09:50)
[2018-02-01] MEDS: oxyCODONE/ACETAMINOPHEN 5-325 MG TABLET PO PRN (09:57)
[2018-02-01 11:22] VITALS: BP 113/58
== END 2018-02-01 14:20 | disposition home or self-care (01) | DRG 271 ==
LOC: N.OR 06:43 → N.SDSINP 06:44 → N.CC 10:53 → N.3E 01-29 11:04
PROVIDERS: ADMIT Surgery; ATTEND Surgery

== ENCOUNTER 2021-10-30 06:19 | Inpatient (IN) ==
[2021-10-30] MEDS: SODIUM CHLORIDE 0.45% 1,000 ML IV SCH ×3 (07:15→20:12)
[2021-10-30] MEDS ORDERED: DIAZEPAM 5 MG TABLET PO ONE (08:30)
[2021-10-30 08:45] LABS: INR 1.1; PT Patient Result 12.3 SECS (10.1-12.1)
[2021-10-30 15:18] LABS: Basophils % 0.4 % (0.0-0.8); Eosinophils % 0.1 % (0.00-10.9); Hemoglobin 12.2 GM/DL (14.0-18.0); Immature Granulocytes % 0.3 %; Immature Granulocytes Absolute 0.03 #; Lymphocytes # 0.7 10*3/uL (1.4-4.0); Lymphocytes % 7.3 % (21.2-54.2); Mean Corpuscular HGB Conc 31.3 GM/DL (32-36); Mean Corpuscular Volume 95.1 FL (87-102); Mean Platelet Volume 9.3 FL (9.6-12.0); Monocytes # 0.5 10*3/uL (0.11-0.8); Monocytes % 5.7 % (1.7-12.7); Neutrophils % 86.2 % (38.7-73.9); Platelet Count 314 T/CUMM (130-400); Red Cell Distribution Width 13.6 % (9.3-17.3); White Blood Count 9.3 T/CUMM (4-12)
[2021-10-30] MEDS ORDERED: GLUCAGON 1 MG VIAL IM PRN (15:23)
[2021-10-30] MEDS ORDERED: hydrALAZINE 20 MG/1 ML VIAL IV PRN (15:24)
[2021-10-30] MEDS ORDERED: ONDANSETRON 4 MG/2 ML VIAL IV PRN (15:24)
[2021-10-30] MEDS ORDERED: BISACODYL 5 MG TABLET PO PRN (15:24)
[2021-10-30] MEDS ORDERED: ALUMINUM/MAGNES/SIMETH MAX STR 30 ML UDCUP PO PRN (15:24)
[2021-10-30] MEDS ORDERED: DOCUSATE SODIUM 100 MG CAPSULE PO PRN (15:24)
[2021-10-30 15:39] LABS: Bilirubin,Total 0.4 MG/DL (0.20-1.00); Calcium 9.1 MG/DL (8.5-10.1); Osmolality,Calculated 289.1 MOS/KG (273-304); Potassium 3.8 MMOL/L (3.5-5.1)
[2021-10-30] MEDS ORDERED: DEXTROSE 10% 250 ML BAG IV PRN (15:45)
[2021-10-30] MEDS: GABAPENTIN 300 MG CAPSULE PO SCH (20:12)
[2021-10-31 06:17] LABS: Basophils % 0.2 % (0.0-0.8); Eosinophils % 0.2 % (0.00-10.9); Hematocrit 37.6 VOL% (42.0-52.0); Hemoglobin 12.1 GM/DL (14.0-18.0); Immature Granulocytes % 0.4 %; Immature Granulocytes Absolute 0.04 #; Lymphocytes # 0.6 10*3/uL (1.4-4.0); Lymphocytes % 7.1 % (21.2-54.2); Mean Corpuscular HGB Conc 32.2 GM/DL (32-36); Mean Corpuscular Volume 93.5 FL (87-102); Mean Platelet Volume 9.5 FL (9.6-12.0); Monocytes # 0.9 10*3/uL (0.11-0.8); Monocytes % 9.4 % (1.7-12.7); Neutrophils % 82.7 % (38.7-73.9); Platelet Count 290 T/CUMM (130-400); Red Blood Count 4.02 MC/CUMM (3.8-5.5); Red Cell Distribution Width 13.4 % (9.3-17.3)
[2021-10-31 06:48] LABS: Calcium 9.6 MG/DL (8.5-10.1); Osmolality,Calculated 282.1 MOS/KG (273-304); Potassium 3.9 MMOL/L (3.5-5.1)
[2021-10-31 06:49] LABS: Risk Ratio 3.48; Thyroid Stimulating Hormone 1.5 uIU/ml (0.358-3.74); VLDL Cholesterol 16.6 MG/DL
[2021-10-31] MEDS ORDERED: NON-FORMULARY MEDICATION (Omeprazole 40 MG capsule,delayed release(DR/EC)) PO SCH (09:00)
[2021-10-31 09:23] LABS: % Iron Saturation 17.3 % (18-50); Ferritin 62.5 ng/mL (26-388)
[2021-10-31 09:27] LABS: Folate > 24.00 NG/ML (5.38-24.0); Vitamin B12 474 PG/ML (211-911)
[2021-10-31] MEDS: traMADol 50 MG TABLET PO SCH (09:37)
[2021-10-31] MEDS: cilostazoL 100 MG TABLET PO SCH (09:38)
[2021-10-31] MEDS: amLODIPine 10 MG TABLET PO SCH (09:39)
[2021-10-31] MEDS: GABAPENTIN 300 MG CAPSULE PO SCH ×2 (09:39→20:29)
[2021-10-31] MEDS: MULTIVITAMIN (OCUVITE) TABLET PO SCH (09:39)
[2021-10-31] MEDS: PANTOPRAZOLE 40 MG TABLET PO SCH (09:39)
[2021-10-31] MEDS: ACETAMINOPHEN 325 MG TABLET PO PRN (13:42)
[2021-10-31] MEDS: SODIUM CHLORIDE 0.45% 1,000 ML IV SCH (18:39)
[2021-11-01] MEDS ORDERED: DOCUSATE SODIUM 100 MG CAPSULE PO PRN (08:43)
[2021-11-01] MEDS: PANTOPRAZOLE 40 MG TABLET PO SCH (09:19)
[2021-11-01] MEDS: GABAPENTIN 300 MG CAPSULE PO SCH ×2 (09:19→21:24)
[2021-11-01] MEDS: cilostazoL 100 MG TABLET PO SCH (09:19)
[2021-11-01] MEDS: MULTIVITAMIN (OCUVITE) TABLET PO SCH (09:19)
[2021-11-01] MEDS: CHOLECALCIFEROL 1,000 UNIT TABLET PO SCH (09:19)
[2021-11-01] MEDS: amLODIPine 10 MG TABLET PO SCH (09:19)
[2021-11-01] MEDS: traMADol 50 MG TABLET PO SCH (09:20)
[2021-11-01] MEDS: FERROUS SULFATE 325 MG TABLET PO SCH (09:24)
[2021-11-01] MEDS ORDERED: LIDOCAINE 1%/EPI INJ 20 ML VIAL ONE (16:42)
[2021-11-01] MEDS: SODIUM CHLORIDE 0.45% 1,000 ML IV SCH (18:24)
[2021-11-01] MEDS: ACETAMINOPHEN 325 MG TABLET PO PRN (21:24)
[2021-11-02 04:53] LABS: Basophils % 0.3 % (0.0-0.8); Eosinophils # 0.1 10*3/uL (0.0-0.87); Eosinophils % 1.4 % (0.00-10.9); Hematocrit 35.6 VOL% (42.0-52.0); Hemoglobin 11.3 GM/DL (14.0-18.0); Immature Granulocytes % 0.4 %; Immature Granulocytes Absolute 0.04 #; Lymphocytes # 0.8 10*3/uL (1.4-4.0); Lymphocytes % 8.6 % (21.2-54.2); Mean Corpuscular HGB Conc 31.7 GM/DL (32-36); Mean Corpuscular Volume 95.2 FL (87-102); Mean Platelet Volume 9.9 FL (9.6-12.0); Monocytes # 0.9 10*3/uL (0.11-0.8); Monocytes % 9.6 % (1.7-12.7); Neutrophils % 79.7 % (38.7-73.9); Platelet Count 317 T/CUMM (130-400); Red Blood Count 3.74 MC/CUMM (3.8-5.5); Red Cell Distribution Width 13.5 % (9.3-17.3); White Blood Count 9.3 T/CUMM (4-12)
[2021-11-02 07:28] LABS: Calcium 10.1 MG/DL (8.5-10.1); Potassium 4.3 MMOL/L (3.5-5.1)
[2021-11-02] MEDS ORDERED: HYDROmorphone 1 MG/1 ML SYRINGE IV PRN (08:18)
[2021-11-02] MEDS ORDERED: KETOROLAC 15 MG/1 ML VIAL IV PRN (08:19)
[2021-11-02] MEDS: cilostazoL 100 MG TABLET PO SCH (09:03)
[2021-11-02] MEDS: GABAPENTIN 300 MG CAPSULE PO SCH ×2 (09:03→20:18)
[2021-11-02] MEDS: MULTIVITAMIN (OCUVITE) TABLET PO SCH (09:03)
[2021-11-02] MEDS: amLODIPine 10 MG TABLET PO SCH (09:03)
[2021-11-02] MEDS: PANTOPRAZOLE 40 MG TABLET PO SCH (09:03)
[2021-11-02] MEDS: FERROUS SULFATE 325 MG TABLET PO SCH (09:03)
[2021-11-02] MEDS: CHOLECALCIFEROL 1,000 UNIT TABLET PO SCH (09:03)
[2021-11-02] MEDS: traMADol 50 MG TABLET PO SCH (09:04)
[2021-11-03 05:04] LABS: Basophils % 0.3 % (0.0-0.8); Eosinophils # 0.1 10*3/uL (0.0-0.87); Hematocrit 33.9 VOL% (42.0-52.0); Hemoglobin 10.6 GM/DL (14.0-18.0); Immature Granulocytes % 0.3 %; Immature Granulocytes Absolute 0.02 #; Lymphocytes # 0.8 10*3/uL (1.4-4.0); Lymphocytes % 11.9 % (21.2-54.2); Mean Corpuscular HGB Conc 31.3 GM/DL (32-36); Mean Corpuscular Volume 96.9 FL (87-102); Mean Platelet Volume 9.8 FL (9.6-12.0); Monocytes # 0.6 10*3/uL (0.11-0.8); Monocytes % 8.9 % (1.7-12.7); Neutrophils % 76.6 % (38.7-73.9); Platelet Count 296 T/CUMM (130-400); Red Cell Distribution Width 13.4 % (9.3-17.3)
[2021-11-03 05:19] LABS: Calcium 9.4 MG/DL (8.5-10.1); Osmolality,Calculated 287.7 MOS/KG (273-304); Potassium 3.9 MMOL/L (3.5-5.1)
[2021-11-03] MEDS: GABAPENTIN 300 MG CAPSULE PO SCH ×2 (08:41→20:42)
[2021-11-03] MEDS: cilostazoL 100 MG TABLET PO SCH (08:41)
[2021-11-03] MEDS: CHOLECALCIFEROL 1,000 UNIT TABLET PO SCH (08:41)
[2021-11-03] MEDS: MULTIVITAMIN (OCUVITE) TABLET PO SCH (08:41)
[2021-11-03] MEDS: FERROUS SULFATE 325 MG TABLET PO SCH (08:41)
[2021-11-03] MEDS: amLODIPine 10 MG TABLET PO SCH (08:41)
[2021-11-03] MEDS: traMADol 50 MG TABLET PO SCH (08:42)
[2021-11-03] MEDS: PANTOPRAZOLE 40 MG TABLET PO SCH (08:42)
[2021-11-03] MEDS: SODIUM CHLORIDE 0.45% 1,000 ML IV SCH (08:44)
[2021-11-04 05:37] LABS: Basophils % 0.3 % (0.0-0.8); Eosinophils # 0.2 10*3/uL (0.0-0.87); Eosinophils % 2.2 % (0.00-10.9); Hemoglobin 10.6 GM/DL (14.0-18.0); Immature Granulocytes % 0.4 %; Immature Granulocytes Absolute 0.03 #; Lymphocytes # 0.7 10*3/uL (1.4-4.0); Lymphocytes % 10.2 % (21.2-54.2); Mean Corpuscular HGB Conc 31.2 GM/DL (32-36); Mean Corpuscular Volume 95.2 FL (87-102); Mean Platelet Volume 10.2 FL (9.6-12.0); Monocytes # 0.5 10*3/uL (0.11-0.8); Monocytes % 7.7 % (1.7-12.7); Neutrophils % 79.2 % (38.7-73.9); Platelet Count 332 T/CUMM (130-400); Red Blood Count 3.57 MC/CUMM (3.8-5.5); Red Cell Distribution Width 13.2 % (9.3-17.3); White Blood Count 6.8 T/CUMM (4-12)
[2021-11-04 06:02] LABS: Calcium 9.5 MG/DL (8.5-10.1); Osmolality,Calculated 286.7 MOS/KG (273-304); Potassium 4.3 MMOL/L (3.5-5.1)
[2021-11-04] MEDS: MULTIVITAMIN (OCUVITE) TABLET PO SCH (08:42)
[2021-11-04] MEDS: traMADol 50 MG TABLET PO SCH (08:42)
[2021-11-04] MEDS: CHOLECALCIFEROL 1,000 UNIT TABLET PO SCH (08:42)
[2021-11-04] MEDS: FERROUS SULFATE 325 MG TABLET PO SCH (08:43)
[2021-11-04] MEDS: cilostazoL 100 MG TABLET PO SCH (08:43)
[2021-11-04] MEDS: GABAPENTIN 300 MG CAPSULE PO SCH ×2 (08:43→20:03)
[2021-11-04] MEDS: amLODIPine 10 MG TABLET PO SCH (08:43)
[2021-11-04] MEDS: PANTOPRAZOLE 40 MG TABLET PO SCH (08:43)
[2021-11-05] MEDS: SODIUM CHLORIDE 0.45% 1,000 ML IV SCH ×3 (04:54→19:52)
[2021-11-05] MEDS: amLODIPine 10 MG TABLET PO SCH (09:34)
[2021-11-05] MEDS: cilostazoL 100 MG TABLET PO SCH (09:34)
[2021-11-05] MEDS: PANTOPRAZOLE 40 MG TABLET PO SCH (09:34)
[2021-11-05] MEDS: MULTIVITAMIN (OCUVITE) TABLET PO SCH (09:34)
[2021-11-05] MEDS: CHOLECALCIFEROL 1,000 UNIT TABLET PO SCH (09:35)
[2021-11-05] MEDS: GABAPENTIN 300 MG CAPSULE PO SCH ×2 (09:35→20:54)
[2021-11-05] MEDS: FERROUS SULFATE 325 MG TABLET PO SCH (09:35)
[2021-11-05] MEDS: traMADol 50 MG TABLET PO SCH (09:35)
[2021-11-06 05:32] LABS: Basophils % 0.5 % (0.0-0.8); Eosinophils # 0.2 10*3/uL (0.0-0.87); Eosinophils % 2.5 % (0.00-10.9); Hematocrit 34.6 VOL% (42.0-52.0); Immature Granulocytes % 0.3 %; Immature Granulocytes Absolute 0.02 #; Lymphocytes # 0.7 10*3/uL (1.4-4.0); Lymphocytes % 10.9 % (21.2-54.2); Mean Corpuscular HGB Conc 31.8 GM/DL (32-36); Mean Corpuscular Volume 94.5 FL (87-102); Mean Platelet Volume 9.6 FL (9.6-12.0); Monocytes # 0.6 10*3/uL (0.11-0.8); Monocytes % 9.3 % (1.7-12.7); Neutrophils % 76.5 % (38.7-73.9); Platelet Count 338 T/CUMM (130-400); Red Blood Count 3.66 MC/CUMM (3.8-5.5); Red Cell Distribution Width 13.2 % (9.3-17.3); White Blood Count 6.4 T/CUMM (4-12)
[2021-11-06 06:14] LABS: Calcium 9.8 MG/DL (8.5-10.1); Osmolality,Calculated 279.3 MOS/KG (273-304)
[2021-11-06] MEDS: amLODIPine 10 MG TABLET PO SCH (08:28)
[2021-11-06] MEDS: MULTIVITAMIN (OCUVITE) TABLET PO SCH (08:28)
[2021-11-06] MEDS: traMADol 50 MG TABLET PO SCH (08:28)
[2021-11-06] MEDS: GABAPENTIN 300 MG CAPSULE PO SCH ×2 (08:28→21:18)
[2021-11-06] MEDS: PANTOPRAZOLE 40 MG TABLET PO SCH (08:29)
[2021-11-06] MEDS: CHOLECALCIFEROL 1,000 UNIT TABLET PO SCH (08:29)
[2021-11-06] MEDS: cilostazoL 100 MG TABLET PO SCH (08:29)
[2021-11-06] MEDS: FERROUS SULFATE 325 MG TABLET PO SCH (08:29)
[2021-11-06] MEDS: SODIUM CHLORIDE 0.45% 1,000 ML IV SCH (21:18)
[2021-11-07 05:08] LABS: Basophils % 0.3 % (0.0-0.8); Eosinophils # 0.2 10*3/uL (0.0-0.87); Hematocrit 35.8 VOL% (42.0-52.0); Hemoglobin 10.9 GM/DL (14.0-18.0); Immature Granulocytes % 0.3 %; Immature Granulocytes Absolute 0.02 #; Lymphocytes % 16.8 % (21.2-54.2); Mean Corpuscular HGB Conc 30.4 GM/DL (32-36); Mean Platelet Volume 9.7 FL (9.6-12.0); Monocytes # 0.5 10*3/uL (0.11-0.8); Monocytes % 9.2 % (1.7-12.7); Neutrophils % 70.4 % (38.7-73.9); Platelet Count 346 T/CUMM (130-400); Red Blood Count 3.69 MC/CUMM (3.8-5.5); Red Cell Distribution Width 13.1 % (9.3-17.3); White Blood Count 5.7 T/CUMM (4-12)
[2021-11-07 05:28] LABS: Calcium 9.6 MG/DL (8.5-10.1); Osmolality,Calculated 281.1 MOS/KG (273-304); Potassium 4.1 MMOL/L (3.5-5.1)
[2021-11-07 06:21] LABS: Calcium 9.4 MG/DL (8.5-10.1); Osmolality,Calculated 281.1 MOS/KG (273-304); Potassium 4.4 MMOL/L (3.5-5.1)
[2021-11-07] MEDS: MULTIVITAMIN (OCUVITE) TABLET PO SCH (08:59)
[2021-11-07] MEDS: PANTOPRAZOLE 40 MG TABLET PO SCH (08:59)
[2021-11-07] MEDS: CHOLECALCIFEROL 1,000 UNIT TABLET PO SCH (08:59)
[2021-11-07] MEDS: cilostazoL 100 MG TABLET PO SCH (08:59)
[2021-11-07] MEDS: FERROUS SULFATE 325 MG TABLET PO SCH (08:59)
[2021-11-07] MEDS: traMADol 50 MG TABLET PO SCH (09:00)
[2021-11-07] MEDS: GABAPENTIN 300 MG CAPSULE PO SCH (09:00)
[2021-11-07] MEDS: amLODIPine 10 MG TABLET PO SCH (09:00)
[2021-11-07] MEDS: SODIUM CHLORIDE 0.45% 1,000 ML IV SCH (17:17)
[2021-11-07 17:28] VITALS: BP 140/50
== END 2021-11-07 18:31 | disposition home or self-care (01) | DRG 200 ==
LOC: N.RAD 06:19 → N.SDSINP 06:21 → N.3E 14:04
PROVIDERS: ADMIT Radiology Diagnostic Radiology; ATTEND Radiology Diagnostic Radiology
PROC: IRGDHTC (2021-10-30 11:05)